=== PATIENT | male | born 1955 | race Caucasian/White ===

== ENCOUNTER 2017-07-18 13:33 | Inpatient (IN) | payer OTHER ==
[2017-07-18] MEDS ORDERED: ONDANSETRON 4 MG INJ IV (14:30)
[2017-07-18] MEDS ORDERED: NACL 0.9% 3 ML SYG IV (14:30)
[2017-07-18] MEDS: SPIRONOLACTONE 50 MG TAB PO (17:11)
[2017-07-18] MEDS ORDERED: SPIRONOLACTONE 50 MG TAB PO (18:00)
[2017-07-18] MEDS: FERROUS SULFATE (EC) 325 MG TAB PO (21:28)
[2017-07-18] MEDS: PROPRANOLOL 20 MG TAB PO (21:29)
[2017-07-18] MEDS: BENZONATATE 100 MG CAP PO (22:03)
[2017-07-18] MEDS: LACTULOSE 30ML CUP PO (22:03)
[2017-07-19] MEDS: ALBUTEROL/IPRATROPIUM (NEB) 3 ML AMP HHN (02:07)
[2017-07-19] MEDS: FUROSEMIDE 40 MG INJ IV (02:34)
[2017-07-19 05:34] LABS: ADD MAN DIFF? NO
[2017-07-19 05:41] LABS: ABNORMAL IP MESSAGE 1; BASOPHIL # 0.1 10^3/ul (0.0-0.1); BASOPHILS % 0.5 % (0.0-2.0); EOSINOPHILS # 0.7 10^3/ul (0.0-0.5); EOSINOPHILS % 5.4 % (0.0-7.0); HEMATOCRIT 33.4 % (42.0-52.0); HEMOGLOBIN 11.3 g/dl (14.0-18.0); LYMPHOCYTES # 2.3 10^3/ul (0.8-2.9); LYMPHOCYTES % 17.3 % (15.0-51.0); MEAN CORPUSCULAR HEMOGLOBIN 30.1 pg (29.0-33.0); MEAN CORPUSCULAR HGB CONC 33.8 g/dl (32.0-37.0); MEAN CORPUSCULAR VOLUME 88.8 fl (82.0-101.0); MEAN PLATELET VOLUME 12.5 fl (7.4-10.4); MONOCYTE # 1.7 10^3/ul (0.3-0.9); MONOCYTES % 13.2 % (0.0-11.0); NEUTROPHIL # 8.2 10^3/ul (1.6-7.5); NEUTROPHILS % 62.6 % (39.0-77.0); PLATELET COUNT 69 10^3/UL (140-415); POSITIVE DIFF @See below; RED BLOOD COUNT 3.76 10^6/ul (4.70-6.10); RED CELL DISTRIBUTION WIDTH 21.2 % (11.5-14.5)
[2017-07-19] MEDS: SPIRONOLACTONE 50 MG TAB PO ×2 (05:56→17:25)
[2017-07-19] MEDS: LACTULOSE 30ML CUP PO ×3 (05:56→21:42)
[2017-07-19 06:15] LABS: ALANINE AMINOTRANSFERASE 105 IU/L (13-69); ALBUMIN 2.7 g/dl (3.3-4.9); ALBUMIN/GLOBULIN RATIO 0.71; ALKALINE PHOSPHATASE 178 IU/L (42-121); ANION GAP 14 (8-16); ASPARTATE AMINO TRANSFERASE 158 IU/L (15-46); BILIRUBIN,INDIRECT 2.9 mg/dl (0-1.1); BILIRUBIN,TOTAL 9.4 mg/dl (0.2-1.3); BLOOD UREA NITROGEN 33 mg/dl (7-20); CARBON DIOXIDE 26 mmol/L (21-31); CHLORIDE 98 mmol/L (97-110); CREATININE 1.22 mg/dl (0.61-1.24); GLUCOSE 93 mg/dl (70-220); POTASSIUM 4.1 mmol/L (3.5-5.1); SODIUM 134 mmol/L (135-144); TOTAL PROTEIN 6.5 g/dl (6.1-8.1)
[2017-07-19] MEDS: PROPRANOLOL 20 MG TAB PO ×2 (08:44→20:53)
[2017-07-19] MEDS: ENOXAPARIN 40 MG/0.4 ML SYG SC (08:45)
[2017-07-19] MEDS: FERROUS SULFATE (EC) 325 MG TAB PO ×2 (08:47→20:50)
[2017-07-19] MEDS: BENZONATATE 100 MG CAP PO ×3 (08:48→20:50)
[2017-07-20] MEDS: SPIRONOLACTONE 50 MG TAB PO ×2 (05:52→18:15)
[2017-07-20] MEDS: LACTULOSE 30ML CUP PO (05:52)
[2017-07-20] MEDS: FERROUS SULFATE (EC) 325 MG TAB PO ×2 (09:25→21:25)
[2017-07-20] MEDS: PROPRANOLOL 20 MG TAB PO ×2 (09:25→21:00)
[2017-07-20] MEDS: BENZONATATE 100 MG CAP PO ×3 (09:25→21:25)
[2017-07-20] MEDS: ENOXAPARIN 40 MG/0.4 ML SYG SC (09:26)
[2017-07-20 15:26] LABS: AMMONIA 199 umol/l (9-30)
[2017-07-20 15:35] LABS: AADO2 Arterial 71.5 mmHg (7.0-24.0); Allen Test ACCEPTAB; Arterial Blood Gas Oxygen Sat 94.2 mmHG (95.0-98.0); Arterial COHb 1.5 % (0.0-3.0); Arterial Fraction of Oxyhgb 92.6 % (93.0-99.0); Arterial HCO3 21.5 mmol/L (22.0-26.0); Arterial MetHb 0.2 % (0.0-1.5); Arterial Total Hemglobin 13.6 g/dl (12.0-18.0); Arterial pCO2 36.7 mmhg (35-45); MODE NASAL CANNULA; Site Left Radial
[2017-07-20] MEDS: LACTULOSE 30ML CUP NGT ×3 (17:00→21:23)
[2017-07-20] MEDS: PIPER-TAZO 3.375 GM IV (PMX) 50 ML IVPB (18:14)
[2017-07-21] MEDS: LACTULOSE 30ML CUP NGT ×6 (00:19→20:39)
[2017-07-21] MEDS: PIPER-TAZO 3.375 GM IV (PMX) 50 ML IVPB ×5 (00:19→23:42)
[2017-07-21] MEDS: SPIRONOLACTONE 50 MG TAB PO ×3 (05:25→18:08)
[2017-07-21] MEDS: PROPRANOLOL 20 MG TAB PO ×2 (09:00→20:39)
[2017-07-21] MEDS: BENZONATATE 100 MG CAP PO ×3 (11:30→20:40)
[2017-07-21] MEDS: FERROUS SULFATE (EC) 325 MG TAB PO ×2 (11:30→20:40)
[2017-07-21] MEDS: ENOXAPARIN 40 MG/0.4 ML SYG SC (11:35)
[2017-07-22] MEDS: LACTULOSE 30ML CUP NGT ×6 (00:20→21:05)
[2017-07-22] MEDS: SPIRONOLACTONE 50 MG TAB PO ×2 (05:24→18:23)
[2017-07-22] MEDS: PIPER-TAZO 3.375 GM IV (PMX) 50 ML IVPB ×3 (05:24→18:18)
[2017-07-22] MEDS: FERROUS SULFATE (EC) 325 MG TAB PO ×2 (09:32→21:05)
[2017-07-22] MEDS: BENZONATATE 100 MG CAP PO ×3 (09:33→21:08)
[2017-07-22] MEDS: PROPRANOLOL 20 MG TAB PO ×2 (09:33→21:05)
[2017-07-22] MEDS: ENOXAPARIN 40 MG/0.4 ML SYG SC (09:35)
[2017-07-23] MEDS: LACTULOSE 30ML CUP NGT ×6 (00:05→21:02)
[2017-07-23] MEDS: PIPER-TAZO 3.375 GM IV (PMX) 50 ML IVPB ×4 (00:05→18:16)
[2017-07-23] MEDS: SPIRONOLACTONE 50 MG TAB PO (05:33)
[2017-07-23 06:22] LABS: ADD MAN DIFF? NO
[2017-07-23 06:31] LABS: WHITE BLOOD COUNT 13.4 10^3/ul (4.8-10.8)
[2017-07-23 06:31] LABS: ABNORMAL IP MESSAGE 1; BASOPHIL # 0.1 10^3/ul (0.0-0.1); BASOPHILS % 0.8 % (0.0-2.0); EOSINOPHILS # 0.6 10^3/ul (0.0-0.5); EOSINOPHILS % 4.2 % (0.0-7.0); HEMATOCRIT 34.5 % (42.0-52.0); HEMOGLOBIN 11.7 g/dl (14.0-18.0); LYMPHOCYTES # 1.7 10^3/ul (0.8-2.9); LYMPHOCYTES % 12.7 % (15.0-51.0); MEAN CORPUSCULAR HEMOGLOBIN 30.6 pg (29.0-33.0); MEAN CORPUSCULAR HGB CONC 33.9 g/dl (32.0-37.0); MEAN CORPUSCULAR VOLUME 90.3 fl (82.0-101.0); MEAN PLATELET VOLUME 12.5 fl (7.4-10.4); MONOCYTE # 1.7 10^3/ul (0.3-0.9); MONOCYTES % 12.5 % (0.0-11.0); NEUTROPHIL # 9.2 10^3/ul (1.6-7.5); NEUTROPHILS % 68.9 % (39.0-77.0); NUCLEATED RED BLOOD CELLS% 0.1 /100WBC (0.0-0.0); PLATELET COUNT 83 10^3/UL (140-415); POSITIVE DIFF @See below; RED BLOOD COUNT 3.82 10^6/ul (4.70-6.10); RED CELL DISTRIBUTION WIDTH 23.1 % (11.5-14.5)
[2017-07-23 07:24] LABS: AMMONIA 46 umol/l (9-30)
[2017-07-23 07:26] LABS: ALANINE AMINOTRANSFERASE 85 IU/L (13-69); ALBUMIN 2.5 g/dl (3.3-4.9); ALBUMIN/GLOBULIN RATIO 0.56; ALKALINE PHOSPHATASE 160 IU/L (42-121); ANION GAP 17 (8-16); ASPARTATE AMINO TRANSFERASE 198 IU/L (15-46); BILIRUBIN,INDIRECT 2.9 mg/dl (0-1.1); BILIRUBIN,TOTAL 14.2 mg/dl (0.2-1.3); BLOOD UREA NITROGEN 36 mg/dl (7-20); CARBON DIOXIDE 22 mmol/L (21-31); CHLORIDE 102 mmol/L (97-110); CREATININE 1.56 mg/dl (0.61-1.24); GLUCOSE 113 mg/dl (70-220); POTASSIUM 4.7 mmol/L (3.5-5.1); SODIUM 136 mmol/L (135-144); TOTAL PROTEIN 6.9 g/dl (6.1-8.1)
[2017-07-23] MEDS: PROPRANOLOL 20 MG TAB PO ×2 (09:00→21:00)
[2017-07-23] MEDS: BENZONATATE 100 MG CAP PO ×3 (09:08→21:02)
[2017-07-23] MEDS: ENOXAPARIN 40 MG/0.4 ML SYG SC (09:09)
[2017-07-23] MEDS: FERROUS SULFATE (EC) 325 MG TAB PO ×2 (09:09→21:02)
[2017-07-23] MEDS: ALBUMIN HUMAN 25% 100 ML IV ×2 (11:41→18:55)
[2017-07-23] MEDS: RIFAXIMIN 550 MG TAB PO ×2 (11:41→21:02)
[2017-07-23 18:59] LABS: ADD UMIC NO; UR ASCORBIC ACID NEGATIVE (NEGATIVE); UR BILIRUBIN (Dip) 2+ mg/dL (NEGATIVE); UR BLOOD (Dip) NEGATIVE (NEGATIVE); UR CLARITY SLIGHTLY CLOUDY (CLEAR); UR COLOR AMBER (YELLOW); UR GLUCOSE (Dip) NEGATIVE (NEGATIVE); UR KETONES (Dip) NEGATIVE (NEGATIVE); UR LEUKOCYTE ESTERASE (Dip) NEGATIVE Leu/ul (NEGATIVE); UR NITRITE (Dip) NEGATIVE (NEGATIVE); UR RBC 1 /HPF (0-5); UR TOTAL PROTEIN (Dip) NEGATIVE (NEGATIVE); UR UROBILINOGEN (Dip) 1+ mg/dL (NEGATIVE); UR WBC 5 /HPF (0-5)
[2017-07-23 19:01] LABS: CREATININE,URINE RANDOM 139.97 mg/dl (20-370)
[2017-07-23 19:01] LABS: SODIUM,URINE RANDOM < 5 mmol/L (30-90)
[2017-07-23 19:40] LABS: OSMOLALITY,URINE 324 mOsm/kg (250-1200)
[2017-07-24] MEDS: LACTULOSE 30ML CUP NGT ×6 (00:27→21:36)
[2017-07-24] MEDS: PIPER-TAZO 3.375 GM IV (PMX) 50 ML IVPB ×5 (00:27→23:56)
[2017-07-24] MEDS: ALBUMIN HUMAN 25% 100 ML IV (02:03)
[2017-07-24 05:42] LABS: ADD MAN DIFF? NO
[2017-07-24 05:50] LABS: ABNORMAL IP MESSAGE 1; BASOPHIL # 0.1 10^3/ul (0.0-0.1); BASOPHILS % 0.9 % (0.0-2.0); EOSINOPHILS # 0.8 10^3/ul (0.0-0.5); EOSINOPHILS % 6.4 % (0.0-7.0); HEMOGLOBIN 9.7 g/dl (14.0-18.0); LYMPHOCYTES # 1.8 10^3/ul (0.8-2.9); LYMPHOCYTES % 14.6 % (15.0-51.0); MEAN CORPUSCULAR HEMOGLOBIN 31.5 pg (29.0-33.0); MEAN CORPUSCULAR HGB CONC 34.6 g/dl (32.0-37.0); MEAN CORPUSCULAR VOLUME 90.9 fl (82.0-101.0); MEAN PLATELET VOLUME 12.8 fl (7.4-10.4); MONOCYTE # 1.3 10^3/ul (0.3-0.9); MONOCYTES % 11.2 % (0.0-11.0); NEUTROPHIL # 7.9 10^3/ul (1.6-7.5); NEUTROPHILS % 65.6 % (39.0-77.0); NUCLEATED RED BLOOD CELLS% 0.2 /100WBC (0.0-0.0); PLATELET COUNT 76 10^3/UL (140-415); POSITIVE DIFF @See below; RED BLOOD COUNT 3.08 10^6/ul (4.70-6.10); RED CELL DISTRIBUTION WIDTH 22.7 % (11.5-14.5)
[2017-07-24 06:18] LABS: ALANINE AMINOTRANSFERASE 75 IU/L (13-69); ALBUMIN 2.5 g/dl (3.3-4.9); ALBUMIN/GLOBULIN RATIO 0.67; ALKALINE PHOSPHATASE 115 IU/L (42-121); ANION GAP 17 (8-16); ASPARTATE AMINO TRANSFERASE 162 IU/L (15-46); BILIRUBIN,INDIRECT 2.8 mg/dl (0-1.1); BILIRUBIN,TOTAL 14.4 mg/dl (0.2-1.3); BLOOD UREA NITROGEN 41 mg/dl (7-20); CALCIUM 7.7 mg/dl (8.4-10.2); CARBON DIOXIDE 21 mmol/L (21-31); CHLORIDE 102 mmol/L (97-110); CREATININE 1.74 mg/dl (0.61-1.24); GLUCOSE 93 mg/dl (70-220); POTASSIUM 4.9 mmol/L (3.5-5.1); SODIUM 135 mmol/L (135-144); TOTAL PROTEIN 6.2 g/dl (6.1-8.1)
[2017-07-24] MEDS: PROPRANOLOL 20 MG TAB PO ×2 (09:00→21:00)
[2017-07-24] MEDS: FERROUS SULFATE (EC) 325 MG TAB PO ×2 (09:12→21:36)
[2017-07-24] MEDS: RIFAXIMIN 550 MG TAB PO ×2 (09:12→21:37)
[2017-07-24] MEDS: BENZONATATE 100 MG CAP PO ×3 (09:12→21:36)
[2017-07-24] MEDS: MIDODRINE 5 MG TAB PO ×2 (12:53→17:54)
[2017-07-24] MEDS: OCTREOTIDE 1 MG in DEXTROSE 5% 95 ML IV (17:54)
[2017-07-25] MEDS: LACTULOSE 30ML CUP NGT ×6 (00:03→20:54)
[2017-07-25] MEDS: PIPER-TAZO 3.375 GM IV (PMX) 50 ML IVPB ×3 (05:51→17:53)
[2017-07-25 06:46] LABS: ADD MAN DIFF? NO
[2017-07-25 07:06] LABS: ABNORMAL IP MESSAGE 1; BASOPHIL # 0.1 10^3/ul (0.0-0.1); BASOPHILS % 0.6 % (0.0-2.0); EOSINOPHILS # 0.4 10^3/ul (0.0-0.5); EOSINOPHILS % 3.2 % (0.0-7.0); HEMATOCRIT 30.9 % (42.0-52.0); HEMOGLOBIN 10.3 g/dl (14.0-18.0); LYMPHOCYTES # 1.3 10^3/ul (0.8-2.9); LYMPHOCYTES % 11.6 % (15.0-51.0); MEAN CORPUSCULAR HEMOGLOBIN 30.7 pg (29.0-33.0); MEAN CORPUSCULAR HGB CONC 33.3 g/dl (32.0-37.0); MEAN CORPUSCULAR VOLUME 92.2 fl (82.0-101.0); MEAN PLATELET VOLUME 12.8 fl (7.4-10.4); MONOCYTE # 1.7 10^3/ul (0.3-0.9); MONOCYTES % 14.5 % (0.0-11.0); NEUTROPHIL # 7.9 10^3/ul (1.6-7.5); NEUTROPHILS % 68.8 % (39.0-77.0); PLATELET COUNT 97 10^3/UL (140-415); POSITIVE DIFF @See below; RED BLOOD COUNT 3.35 10^6/ul (4.70-6.10); RED CELL DISTRIBUTION WIDTH 23.1 % (11.5-14.5)
[2017-07-25 07:06] LABS: WHITE BLOOD COUNT 11.5 10^3/ul (4.8-10.8)
[2017-07-25 07:11] LABS: ALANINE AMINOTRANSFERASE 74 IU/L (13-69); ALBUMIN/GLOBULIN RATIO 0.73; ALKALINE PHOSPHATASE 129 IU/L (42-121); ANION GAP 19 (8-16); ASPARTATE AMINO TRANSFERASE 194 IU/L (15-46); BILIRUBIN,INDIRECT 3.1 mg/dl (0-1.1); BILIRUBIN,TOTAL 17.2 mg/dl (0.2-1.3); BLOOD UREA NITROGEN 45 mg/dl (7-20); CALCIUM 7.9 mg/dl (8.4-10.2); CARBON DIOXIDE 19 mmol/L (21-31); CHLORIDE 100 mmol/L (97-110); CREATININE 1.78 mg/dl (0.61-1.24); GLUCOSE 124 mg/dl (70-220); POTASSIUM 5.3 mmol/L (3.5-5.1); SODIUM 133 mmol/L (135-144); TOTAL PROTEIN 7.1 g/dl (6.1-8.1)
[2017-07-25] MEDS: PROPRANOLOL 20 MG TAB PO ×2 (09:00→20:57)
[2017-07-25] MEDS: MIDODRINE 5 MG TAB PO ×3 (09:00→17:53)
[2017-07-25] MEDS: BENZONATATE 100 MG CAP PO ×3 (10:24→20:55)
[2017-07-25] MEDS: RIFAXIMIN 550 MG TAB PO ×2 (10:24→20:55)
[2017-07-25] MEDS: FERROUS SULFATE (EC) 325 MG TAB PO ×2 (10:24→20:55)
[2017-07-25] MEDS: OCTREOTIDE 1 MG in DEXTROSE 5% 95 ML IV (10:25)
[2017-07-25] MEDS: NA POLYST SULFON 15 GM/60 ML BTL PO (18:35)
[2017-07-26] MEDS: PIPER-TAZO 3.375 GM IV (PMX) 50 ML IVPB ×4 (01:01→17:13)
[2017-07-26] MEDS: LACTULOSE 30ML CUP NGT ×6 (01:01→20:47)
[2017-07-26 06:45] LABS: ADD MAN DIFF? NO
[2017-07-26] MEDS: OCTREOTIDE 1 MG in DEXTROSE 5% 95 ML IV (06:51)
[2017-07-26 06:53] LABS: ABNORMAL IP MESSAGE 1; BASOPHIL # 0.1 10^3/ul (0.0-0.1); BASOPHILS % 0.7 % (0.0-2.0); EOSINOPHILS # 0.1 10^3/ul (0.0-0.5); EOSINOPHILS % 1.2 % (0.0-7.0); HEMATOCRIT 29.5 % (42.0-52.0); HEMOGLOBIN 10.1 g/dl (14.0-18.0); LYMPHOCYTES # 1.3 10^3/ul (0.8-2.9); MEAN CORPUSCULAR HEMOGLOBIN 31.5 pg (29.0-33.0); MEAN CORPUSCULAR HGB CONC 34.2 g/dl (32.0-37.0); MEAN CORPUSCULAR VOLUME 91.9 fl (82.0-101.0); MEAN PLATELET VOLUME 12.7 fl (7.4-10.4); MONOCYTE # 1.7 10^3/ul (0.3-0.9); MONOCYTES % 16.9 % (0.0-11.0); NEUTROPHIL # 6.9 10^3/ul (1.6-7.5); NEUTROPHILS % 66.9 % (39.0-77.0); PLATELET COUNT 87 10^3/UL (140-415); POSITIVE DIFF @See below; RED BLOOD COUNT 3.21 10^6/ul (4.70-6.10); RED CELL DISTRIBUTION WIDTH 23.3 % (11.5-14.5)
[2017-07-26 06:53] LABS: WHITE BLOOD COUNT 10.2 10^3/ul (4.8-10.8)
[2017-07-26 08:06] LABS: ALANINE AMINOTRANSFERASE 65 IU/L (13-69); ALBUMIN 2.6 g/dl (3.3-4.9); ALBUMIN/GLOBULIN RATIO 0.66; ALKALINE PHOSPHATASE 114 IU/L (42-121); ANION GAP 19 (8-16); ASPARTATE AMINO TRANSFERASE 192 IU/L (15-46); BILIRUBIN,INDIRECT 2.8 mg/dl (0-1.1); BILIRUBIN,TOTAL 14.7 mg/dl (0.2-1.3); BLOOD UREA NITROGEN 44 mg/dl (7-20); CALCIUM 7.3 mg/dl (8.4-10.2); CARBON DIOXIDE 19 mmol/L (21-31); CHLORIDE 97 mmol/L (97-110); CREATININE 1.81 mg/dl (0.61-1.24); GLUCOSE 138 mg/dl (70-220); POTASSIUM 5.1 mmol/L (3.5-5.1); SODIUM 130 mmol/L (135-144); TOTAL PROTEIN 6.5 g/dl (6.1-8.1)
[2017-07-26] MEDS: BENZONATATE 100 MG CAP PO ×3 (08:15→20:48)
[2017-07-26] MEDS: FERROUS SULFATE (EC) 325 MG TAB PO ×2 (08:15→20:48)
[2017-07-26] MEDS: RIFAXIMIN 550 MG TAB PO ×2 (08:16→20:48)
[2017-07-26] MEDS: MIDODRINE 5 MG TAB PO ×3 (08:18→17:12)
[2017-07-26] MEDS: PROPRANOLOL 20 MG TAB PO ×2 (08:19→21:00)
[2017-07-26] MEDS: FUROSEMIDE 20 MG INJ IV (18:14)
[2017-07-27] MEDS: PIPER-TAZO 3.375 GM IV (PMX) 50 ML IVPB ×4 (00:17→17:17)
[2017-07-27] MEDS: LACTULOSE 30ML CUP NGT ×4 (00:17→17:16)
[2017-07-27] MEDS: OCTREOTIDE 1 MG in DEXTROSE 5% 95 ML IV ×2 (00:19→04:04)
[2017-07-27 07:27] LABS: ADD MAN DIFF? NO
[2017-07-27 07:34] LABS: ABNORMAL IP MESSAGE 1; BASOPHIL # 0.1 10^3/ul (0.0-0.1); BASOPHILS % 0.7 % (0.0-2.0); EOSINOPHILS # 0.2 10^3/ul (0.0-0.5); EOSINOPHILS % 1.5 % (0.0-7.0); HEMATOCRIT 30.9 % (42.0-52.0); HEMOGLOBIN 10.5 g/dl (14.0-18.0); LYMPHOCYTES # 1.6 10^3/ul (0.8-2.9); LYMPHOCYTES % 13.6 % (15.0-51.0); MEAN CORPUSCULAR HEMOGLOBIN 30.8 pg (29.0-33.0); MEAN CORPUSCULAR VOLUME 90.6 fl (82.0-101.0); MEAN PLATELET VOLUME 12.2 fl (7.4-10.4); MONOCYTE # 1.4 10^3/ul (0.3-0.9); MONOCYTES % 11.8 % (0.0-11.0); NEUTROPHIL # 8.6 10^3/ul (1.6-7.5); NEUTROPHILS % 71.6 % (39.0-77.0); PLATELET COUNT 93 10^3/UL (140-415); POSITIVE DIFF @See below; RED BLOOD COUNT 3.41 10^6/ul (4.70-6.10); RED CELL DISTRIBUTION WIDTH 23.6 % (11.5-14.5)
[2017-07-27 08:08] LABS: ALANINE AMINOTRANSFERASE 66 IU/L (13-69); ALBUMIN 2.4 g/dl (3.3-4.9); ALBUMIN/GLOBULIN RATIO 0.58; ALKALINE PHOSPHATASE 114 IU/L (42-121); ANION GAP 13 (8-16); ASPARTATE AMINO TRANSFERASE 197 IU/L (15-46); BILIRUBIN,INDIRECT 2.5 mg/dl (0-1.1); BILIRUBIN,TOTAL 13.1 mg/dl (0.2-1.3); BLOOD UREA NITROGEN 45 mg/dl (7-20); CALCIUM 7.2 mg/dl (8.4-10.2); CARBON DIOXIDE 22 mmol/L (21-31); CHLORIDE 97 mmol/L (97-110); CREATININE 1.84 mg/dl (0.61-1.24); GLUCOSE 110 mg/dl (70-220); SODIUM 127 mmol/L (135-144); TOTAL PROTEIN 6.5 g/dl (6.1-8.1)
[2017-07-27 08:14] LABS: POTASSIUM 5.3 mmol/L (3.5-5.1)
[2017-07-27] MEDS: RIFAXIMIN 550 MG TAB PO ×2 (09:06→20:43)
[2017-07-27] MEDS: PROPRANOLOL 20 MG TAB PO (09:06)
[2017-07-27] MEDS: FERROUS SULFATE (EC) 325 MG TAB PO ×2 (09:06→20:43)
[2017-07-27] MEDS: BENZONATATE 100 MG CAP PO ×3 (09:07→20:43)
[2017-07-27] MEDS: MIDODRINE 5 MG TAB PO ×3 (09:09→17:24)
[2017-07-27] MEDS: FUROSEMIDE 20 MG INJ IV (18:00)
[2017-07-28] MEDS: PIPER-TAZO 3.375 GM IV (PMX) 50 ML IVPB ×2 (00:46→06:17)
[2017-07-28] MEDS: LACTULOSE 30ML CUP NGT ×4 (00:46→18:08)
[2017-07-28] MEDS: FUROSEMIDE 20 MG INJ IV (05:16)
[2017-07-28 07:39] LABS: ADD MAN DIFF? NO
[2017-07-28 07:45] LABS: ABNORMAL IP MESSAGE 1; BASOPHIL # 0.1 10^3/ul (0.0-0.1); BASOPHILS % 0.7 % (0.0-2.0); EOSINOPHILS # 0.5 10^3/ul (0.0-0.5); EOSINOPHILS % 4.2 % (0.0-7.0); HEMATOCRIT 30.7 % (42.0-52.0); HEMOGLOBIN 10.3 g/dl (14.0-18.0); LYMPHOCYTES # 2.2 10^3/ul (0.8-2.9); LYMPHOCYTES % 18.9 % (15.0-51.0); MEAN CORPUSCULAR HEMOGLOBIN 31.4 pg (29.0-33.0); MEAN CORPUSCULAR HGB CONC 33.6 g/dl (32.0-37.0); MEAN CORPUSCULAR VOLUME 93.6 fl (82.0-101.0); MEAN PLATELET VOLUME 12.8 fl (7.4-10.4); MONOCYTE # 1.2 10^3/ul (0.3-0.9); MONOCYTES % 10.6 % (0.0-11.0); NEUTROPHIL # 7.6 10^3/ul (1.6-7.5); NEUTROPHILS % 64.8 % (39.0-77.0); PLATELET COUNT 98 10^3/UL (140-415); POSITIVE DIFF @See below; RED BLOOD COUNT 3.28 10^6/ul (4.70-6.10)
[2017-07-28 07:45] LABS: WHITE BLOOD COUNT 11.7 10^3/ul (4.8-10.8)
[2017-07-28 08:14] LABS: ALANINE AMINOTRANSFERASE 60 IU/L (13-69); ALBUMIN 2.1 g/dl (3.3-4.9); ALBUMIN/GLOBULIN RATIO 0.55; ALKALINE PHOSPHATASE 92 IU/L (42-121); ANION GAP 14 (8-16); ASPARTATE AMINO TRANSFERASE 174 IU/L (15-46); BILIRUBIN,TOTAL 11.7 mg/dl (0.2-1.3); BLOOD UREA NITROGEN 51 mg/dl (7-20); CARBON DIOXIDE 20 mmol/L (21-31); CHLORIDE 97 mmol/L (97-110); CREATININE 3.07 mg/dl (0.61-1.24); GLUCOSE 90 mg/dl (70-220); POTASSIUM 5.1 mmol/L (3.5-5.1); SODIUM 126 mmol/L (135-144); TOTAL PROTEIN 5.9 g/dl (6.1-8.1)
[2017-07-28] MEDS: FERROUS SULFATE (EC) 325 MG TAB PO (08:19)
[2017-07-28] MEDS: MIDODRINE 5 MG TAB PO ×3 (08:19→18:09)
[2017-07-28] MEDS: BENZONATATE 100 MG CAP PO ×2 (08:20→12:34)
[2017-07-28] MEDS: RIFAXIMIN 550 MG TAB PO ×2 (08:20→19:57)
[2017-07-28] MEDS ORDERED: PIPER-TAZO 2.25 GM (PMX) 50 ML IVPB (12:30)
[2017-07-28] MEDS: GUAIFENESIN/DM 5ML CUP PO (21:58)
[2017-07-28 23:31] LABS: COLLECTION PERIOD 24 hrs
[2017-07-29 00:11] LABS: VOLUME 100 mls
[2017-07-29] MEDS: LACTULOSE 30ML CUP NGT ×4 (00:21→18:20)
[2017-07-29] MEDS: RIFAXIMIN 550 MG TAB PO ×2 (11:20→20:30)
[2017-07-29] MEDS: MIDODRINE 5 MG TAB PO ×3 (11:20→18:21)
[2017-07-30] MEDS: LACTULOSE 30ML CUP NGT ×3 (00:32→11:34)
[2017-07-30 05:45] LABS: ALANINE AMINOTRANSFERASE 73 IU/L (13-69); ALBUMIN 2.3 g/dl (3.3-4.9); ALBUMIN/GLOBULIN RATIO 0.54; ALKALINE PHOSPHATASE 119 IU/L (42-121); ANION GAP 18 (8-16); ASPARTATE AMINO TRANSFERASE 249 IU/L (15-46); BILIRUBIN,TOTAL 13.9 mg/dl (0.2-1.3); BLOOD UREA NITROGEN 66 mg/dl (7-20); CALCIUM 7.3 mg/dl (8.4-10.2); CARBON DIOXIDE 16 mmol/L (21-31); CHLORIDE 96 mmol/L (97-110); CREATININE 5.67 mg/dl (0.61-1.24); GLUCOSE 82 mg/dl (70-220); POTASSIUM 5.4 mmol/L (3.5-5.1); SODIUM 125 mmol/L (135-144); TOTAL PROTEIN 6.5 g/dl (6.1-8.1)
[2017-07-30] MEDS: RIFAXIMIN 550 MG TAB PO (10:36)
[2017-07-30] MEDS: MIDODRINE 5 MG TAB PO (10:36)
[2017-07-30] MEDS: ONDANSETRON 4 MG TAB PO (11:34)
[2017-07-30] MEDS: morphine 2 MG INJ IV ×2 (12:16→14:06)
[2017-07-30] MEDS ORDERED: DIMETHICONE STICK TOP (13:30)
[2017-07-30] MEDS ORDERED: ATROPINE 1% 5 ML OPH SL (13:30)
[2017-07-30] MEDS ORDERED: ACETAMINOPHEN 650 MG SUPP PR (13:30)
[2017-07-30] MEDS ORDERED: ARTIFICIAL TEARS 15 ML OPH BOTH EYES (13:30)
[2017-07-30] MEDS ORDERED: LORAZEPAM 2 MG INJ IV (13:30)
[2017-07-30] MEDS ORDERED: ALBUTEROL/IPRATROPIUM (NEB) 3 ML AMP HHN (13:30)
[2017-07-30] MEDS: morphine (DRIP) 100 MG/100 ML 100 ML IV (15:41)
[2017-07-30] MEDS: SCOPOLAMINE 1.5 MG PATCH TRANSDERM (15:56)
== END 2017-07-31 01:00 | disposition expired | DRG 435 ==
LOC: MS1 07-29 02:17 → PP2 13:33 → TEL 07-24 16:38 → MS1 07-30 16:39
DX: C22.0 Liver cell carcinoma (principal); K76.7 Hepatorenal syndrome; D68.9 Coagulation defect, unspecified; D69.6 Thrombocytopenia, unspecified; N17.9 Acute kidney failure, unspecified; Z68.42 Body mass index [BMI] 45.0-49.9, adult; E87.1 Hypo-osmolality and hyponatremia; I85.10 Secondary esophageal varices without bleeding; N18.3 Chronic kidney disease, stage 3 (moderate); K70.31 Alcoholic cirrhosis of liver with ascites; K70.40 Alcoholic hepatic failure without coma; I12.9 Hypertensive chronic kidney disease with stage 1 through stage 4 chronic kidney disease, or unspecified chronic kidney disease; E87.5 Hyperkalemia; D64.9 Anemia, unspecified; E88.09 Other disorders of plasma-protein metabolism, not elsewhere classified; E66.01 Morbid (severe) obesity due to excess calories; F10.20 Alcohol dependence, uncomplicated; Z66 Do not resuscitate
CPT/HCPCS: 36600; 71045; 74181; 76705; 78582; 80053; 81001; 81003; 82140; 82803; 83735; 83935; 84155; 84156; 84300; 85025; 93970; 94664; 97162; J1940